=== PATIENT | female | born 1950 | race Native Hawaiian/Other Pacific Islander ===

== ENCOUNTER 2018-11-28 08:02 | Outpatient (CLI) | payer MEDICARE | END 2018-11-28 08:03 | disposition home or self-care (01) | LOC: C.LAB 08:02 | DX: E11.9 Type 2 diabetes mellitus without complications (principal) ==

== ENCOUNTER 2019-02-16 08:42 | Outpatient (CLI) | payer MEDICARE | END 2019-02-16 08:43 | disposition home or self-care (01) | LOC: C.LAB 08:42 | DX: E11.9 Type 2 diabetes mellitus without complications (principal) ==